=== PATIENT | female | born 1955 | race Caucasian/White ===

== ENCOUNTER 2016-07-20 11:36 | Emergency (ER) | payer OTHER, MEDICAID ==
[~2016-07-20] VITALS: Ht 149.9 cm; Wt 68.0 kg
[2016-07-20 11:36] VITALS: BP 115/57; PULSE 91; RESP 16; TEMP 97.2; O2SAT 98
[~2016-07-20 11:36] MED LIST: ASCO500T20 PO; CALC260T7 PO; IMIP50TA7 PO; MAGN400T10 PO; MULT PO; OMEP20CA10 PO; RISP0.5T2 PO; SIMV20TA6 PO; TRAZ-123 PO; VITD400 PO
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
--- NOTE | 2016-07-20 11:36 | NUR ---
Placed in room 5 . Placed on playground monitor, blood pressure machine and pulse ASSUMED CARE OF THE PT.
--- NOTE | 2016-07-20 11:42 | NUR ---
# 20 gauge angiocath placed to L AC. Use of asceptic technique. Opsite placed over site. Blood return noted. Blood for lab drawn from site. Flushed with 10 cc of normal saline. No evidence of infiltration noted. Patient tolerated well.
--- NOTE | 2016-07-20 12:22 | NUR ---
care and report endorsed to derrick ESPINAL
[2016-07-20] MEDS ORDERED: LEVE500T53 PO (12:28)
--- NOTE | 2016-07-20 12:28 | NUR ---
Medication reconciliation completed with information provided by list from patient. Any prior medication reconciliation on file was reviewed and corrected.
[2016-07-20 12:46] LABS: BASOPHILS # (AUTO) 0.1 K/uL (0.0-0.2); BASOPHILS % (AUTO) 1.7 % (0.0-2.0); EOSINOPHILS # (AUTO) 0.1 K/uL (0.0-0.4); EOSINOPHILS % (AUTO) 1.2 % (0.0-4.0); HEMATOCRIT 36.6 % (36-48); HEMOGLOBIN 12.3 g/dL (12.0-16.0); LYMPHOCYTES % (AUTO) 21.4 % (20.5-51.5); MEAN CORPUSCULAR HEMOGLOBIN 32 pg (27-31); MEAN CORPUSCULAR HGB CONC 34 % (32-36); MEAN CORPUSCULAR VOLUME 94 fL (79.0-98.0); MONOCYTES # (AUTO) 0.6 K/uL (0.0-1.0); MONOCYTES % (AUTO) 12.8 % (1.7-9.3); NEUTROPHILS # (AUTO) 2.9 K/uL (1.8-7.7); NEUTROPHILS % (AUTO) 62.9 % (40.0-70.0); PLATELET COUNT (AUTO) 280 K/uL (130-430); RED CELL DISTRIBUTION WIDTH 14.8 % (9.0-15.0); WHITE BLOOD COUNT (AUTO) 4.7 K/uL (4.8-10.8)
[2016-07-20 12:48] LABS: ANION GAP 6 (5-15); CALCIUM 8.7 mg/dL (8.4-11.0); CHLORIDE 104 mmol/L (98-107); CREATININE 0.95 mg/dL (0.55-1.30); GLUCOSE 107 mg/dL (70-99); POTASSIUM 4.6 mmol/L (3.5-5.1); SODIUM SERUM 143 mmol/L (136-145); UREA NITROGEN, BLOOD 13 mg/dL (8-21)
[2016-07-20 12:49] LABS: GFR AFRICAN AMERICAN 77 mL/min (>90)
[2016-07-20 12:56] LABS: ALANINE AMINOTRANSFERASE 43 U/L (12-78); ASPARTATE AMINOTRANSFERASE 43 U/L (10-37); TOTAL BILIRUBIN 0.3 mg/dL (0.0-1.0); TOTAL PROTEIN, SERUM 6.9 g/dL (6.4-8.3)
--- NOTE | 2016-07-20 13:04 | NUR ---
Pt off the unit for CT
--- NOTE | 2016-07-20 13:30 | NUR ---
Pt returned to unit with no incidents,
--- NOTE | 2016-07-20 14:02 | NUR ---
Pt on stable condition at this time, denies pain or discomfort,VSS.
[2016-07-20 15:39] VITALS: BP 115/57; PULSE 91; RESP 16; TEMP 97.2
[2016-07-20 21:32] VITALS: O2SAT 98
== END 2016-07-20 15:39 | disposition home or self-care (01) ==
LOC: SED 11:36
DX: S01.511A Laceration without foreign body of lip, initial encounter (principal); R55 Syncope and collapse; K21.9 Gastro-esophageal reflux disease without esophagitis; E78.00 Pure hypercholesterolemia, unspecified; Q90.9 Down syndrome, unspecified; W19.XXXA Unspecified fall, initial encounter; Y93.89 Activity, other specified; Y92.89 Other specified places as the place of occurrence of the external cause; Y99.8 Other external cause status
CPT/HCPCS: 36415; 70450-TC; 80053; 82542; 84484; 85025; 93005; 99285